=== PATIENT | female | born 1985 | race Two or more races ===

== ENCOUNTER 2018-09-22 13:20 | Emergency (ER) | payer SELFPAY ==
[2018-09-22 13:39] VITALS: BP 123/61
--- NOTE | 2018-09-22 14:18 | UC ---
Abdominal Pain Female HPI - HPI Summary HPI Summary: 32 y/o female + test, not sure about her LMP ? 12 weeks of gestation 3 days hx of right lower abdominal pain , no vaginal bleeding or discharge , no n/v/d/c , no urinary sx no fever, no chills hx of uterine surgery do to precancer cells - History of Current Complaint Chief Complaint: UCGU Stated Complaint: RIGHT SIDED PAIN () Time Seen by Provider: 09/22/18 13:52 Hx Obtained From: Patient Hx Last Menstrual Period: unknown ?: Yes Onset/Duration: Gradual Onset, Lasting Days - 2, Still Present Timing: Constant Severity Initially: Moderate Severity Currently: Moderate Pain Intensity: 4 Location: Discrete At: RLQ, Suprapubic Radiates: Yes Character: Cramping, Dull Aggravating Factor(s): Movement Alleviating Factor(s): Nothing Associated Signs and Symptoms: Negative: Fever, Cough, Chest Pain, Dizzy, Back Pain, Constipation, Blood in Stool, Decreased Appetite, Vaginal Bleeding, Vaginal Discharge, Nausea, Vomiting, Diarrhea Allergies/Adverse Reactions: Allergies Allergy/AdvReac Type Severity Reaction Status Date / Time No Known Allergies Allergy Verified 09/22/18 13:36 Home Medications: Home Medications NK [No Home Medications Reported] 09/22/18 [History Confirmed 09/22/18] PMH/Surg Hx/FS Hx/Imm Hx Previously Healthy: Yes - Surgical History Surgical History: Yes Surgery Procedure, Year, and Place: 2014 - Family History Known Family History: Negative: Diabetes - Social History Alcohol Use: None Substance Use Type: None Smoking Status (MU): Never Smoked Tobacco Review of Systems All Other Systems Reviewed And Are Negative: Yes Constitutional: Positive: Negative Skin: Positive: Negative Eyes: Positive: Negative ENT: Positive: Negative Respiratory: Positive: Negative Gastrointestinal: Positive: Abdominal Pain Is Patient Immunocompromised?: No Physical Exam Triage Information Reviewed: Yes Appearance: Well-Appearing, No Pain Distress, Well-Nourished Vital Signs: Initial Vital Signs Temp 98.7 F 09/22/18 13:32 Pulse 70 09/22/18 13:32 Resp 15 09/22/18 13:32 BP 123/61 09/22/18 13:32 Pulse Ox 100 09/22/18 13:32 Vital Signs Reviewed: Yes Eye Exam: Normal Eyes: Positive: Conjunctiva Clear ENT: Positive: Normal ENT inspection, Hearing grossly normal, Pharynx normal Neck: Positive: Supple, Nontender, No Lymphadenopathy Respiratory: Positive: Chest non-tender, Lungs clear, Normal breath sounds Cardiovascular: Positive: RRR, No Murmur, Pulses Normal Abdomen Description: Positive: Soft, Other: - RLQ tenderness. Negative: CVA Tenderness (R), CVA Tenderness (L), Distended, Guarding Bowel Sounds: Positive: Present Musculoskeletal Exam: Normal Abd Pain Female Course/Dx - Differential Dx/Diagnosis Provider Diagnosis: Abdominal pain during Discharge - Sign-Out/Discharge Documenting (check all that apply): Patient Departure All imaging exams completed and their final reports reviewed: No Studies - Discharge Plan Condition: Stable Disposition: HOME Patient Education Materials: Abdominal Pain in (ED) Referrals: No Primary Care Phys,NOPCP [Primary Care Provider] - Additional Instructions: please go to [facility] ED for evaluation and tx + , ? 12 weeks concern about ectopic , may need TransVaginal ultrasound - Billing Disposition and Condition Condition: STABLE Disposition: Home
== END 2018-09-22 14:17 | disposition home or self-care (01) ==
LOC: UCCORT 13:20
DX: O26.891 Other specified pregnancy related conditions, first trimester (principal); R10.31 Right lower quadrant pain; Z3A.12 12 weeks gestation of pregnancy
CPT/HCPCS: 81003; 84702; 99202; G0463